=== PATIENT | female | born 1955 | race Caucasian/White ===

== ENCOUNTER 2019-08-21 06:57 | Day surgery (SDC) | payer MEDICARE, OTHER ==
[~2019-08-21 06:57] MED LIST: Lactated Ringers 1,000 ML IV SCH; Lidocaine 1% 6 ML ONE; Lidocaine 1%/Sod Bicarbonate in NS 8.4% 1 ML Syringe IDERM PRN; Propofol 200 MG/20 ML SDV ONE; Sodium Chloride 0.9% 10 ML Syringe FLUSH PRN; fentaNYL 100 MCG/2 ML SDV ONE
--- NOTE | 2019-08-21 07:42 | PCM.PREANE ---
Preanesthetic Assessment - Procedure Proposed Procedure: screening colonoscopy - Anesthesia/Transfusion/Family Hx Anesthesia History: Prior Anesthesia Without Reaction Family History of Anesthesia Reaction: No Transfusion History: No Prior Transfusion(s) - Review of Systems General: No Symptoms Pulmonary: No Symptoms Cardiovascular: No Symptoms Gastrointestinal: No Symptoms Neurological: Numbness (legs and hands), Tingling (feet and hands), Difficulty Walking (plate and sara in left leg knee to ankle) Other: Reports: Diabetes (check this am 121 at 0734), Thyroid Problems ( hypothyroid) - Physical Assessment NPO Status Date: 08/20/19 NPO Status Time: 23:45 Vital Signs: Last Vital Signs Temp 36.2 C 08/21/19 07:10 Pulse 80 08/21/19 07:10 Resp 16 08/21/19 07:10 BP 92/48 L 08/21/19 07:10 Pulse Ox 99 08/21/19 07:10 Height: 1.6 m Weight: 74.389 kg ASA Class: 3 Mental Status: Alert & Oriented x3 Airway Class: Mallampati = 1 Dentition: Reports: [place](s), Broken Tooth/Teeth, Missing Tooth/Teeth Thyro-Mental Finger Breadths: 3 Mouth Opening Finger Breadths: 3 ROM/Head Extension: Full Lungs: Clear to Auscultation, Normal Respiratory Effort Cardiovascular: Regular Rate, Regular Rhythm - Imaging/EKG Impressions: EKG NSR rate77 - Allergies Allergies/Adverse Reactions: Allergies Allergy/AdvReac Type Severity Reaction Status Date / Time No Known Allergies Allergy Verified 08/19/19 13:09 - Blood Blood Available: No Product(s) Available: None - Anesthesia Plan Pre-Op Medication Ordered: None - Acknowledgements Anesthesia Type Planned: MAC Pt an Appropriate Candidate for the Planned Anesthesia: Yes Alternatives and Risks of Anesthesia Discussed w Pt/Guardian: Yes Pt/Guardian Understands and Agrees with Anesthesia Plan: Yes PreAnesthesia Questionnaire HEENT History: Reports: Sinusitis Cardiovascular History: Reports: High Cholesterol, Hypertension, Other (See Below) Other Cardiovascular History: pericardial effusion Respiratory History: Reports: None Gastrointestinal History: Reports: Chronic Constipation, GERD Genitourinary History: Reports: Other (See Below) Other Genitourinary History: burning with urination, renal insufficiency 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 OB/BYN History: yeast infection, ovarian cystectomy Musculoskeletal History: Reports: Arthritis, Back Pain, Chronic, Neck Pain, Chronic Other Musculoskeletal History: lumbar strain Neurological History: Reports: CVA Psychiatric History: Reports: Depression Endocrine/Metabolic History: Reports: Diabetes, Type II, Hypothyroidism, Vitamin D Deficiency Hematologic History: Reports: Anemia, B12 Deficiency, Iron Deficiency Immunologic History: Reports: None Oncologic (Cancer) History: Reports: None Dermatologic History: Reports: None - Past Surgical History HEENT Surgical History: Reports: Cataract Surgery, Eye Surgery, Tonsillectomy Cardiovascular Surgical History: Reports: None Respiratory Surgical History: Reports: None GI Surgical History: Reports: Appendectomy, Bariatric Procedure, Cholecystectomy , Other (See Below) Other GI Surgeries/Procedures: abdominoperineal resection for neuroendocrine tumor Female Surgical History: Reports: Section, Tubal Ligation Endocrine Surgical History: Reports: None Neurological Surgical History: Reports: None Musculoskeletal Surgical History: Reports: Other (See Below) Other Musculoskeletal Surgeries/Procedures:: right trigger finger release, left leg fracture with hardware Dermatological Surgical History: Reports: None - SUBSTANCE USE Smoking Status *Q: Former Smoker Tobacco Use Within Last Twelve Months: Cigarettes Second Hand Smoke Exposure: No Days Per Week of Alcohol Use: 0 Number of Drinks Per Day: 0 Total Drinks Per Week: 0 Recreational Drug Use History: No - HOME MEDS Home Medications: Home Meds Ascorbic Acid [Vitamin C] 500 mg PO BID 08/19/19 [History] Aspirin 325 mg PO DAILY 08/19/19 [History] Brimonidine [Alphagan P 0.15% Ophth Soln] 1 drop EYEBOTH BID 08/19/19 [History] Calcium Carbonate [Calcium] 600 mg PO DAILY 08/19/19 [History] Cholecalciferol (Vitamin D3) [Vitamin D3] 5,000 unit PO DAILY 08/19/19 [History] Citalopram Hydrobromide [Celexa] 40 mg PO DAILY 08/19/19 [History] Cyanocobalamin (Vitamin B-12) [Vitamin B-12] 3,000 mcg PO DAILY 08/19/19 [ History] Cyclobenzaprine [Flexeril] 5 mg PO TID PRN 08/19/19 [History] Dapagliflozin Propanediol [Farxiga] 10 mg PO DAILY 08/19/19 [History] Exenatide Microspheres [Bydureon Pen] 2 mg SQ MO 08/19/19 [History] Ferrous Sulfate [Iron] 325 mg PO DAILY 08/19/19 [History] Fluticasone Propionate [Flonase] 1 dose NASBOTH BID 08/19/19 [History] Gabapentin [Neurontin] 800 mg PO BID 08/19/19 [History] Insulin Detemir [Levemir] 18 unit SQ QPM 08/19/19 [History] Insulin Detemir [Levemir] 20 unit SQ QAM 08/19/19 [History] Levothyroxine [Synthroid] 100 mcg PO DAILY 08/19/19 [History] Lovastatin 60 mg PO DAILY 08/19/19 [History] Montelukast [Singulair] 10 mg PO DAILY 08/19/19 [History] Pantoprazole Sodium [Protonix] 40 mg PO DAILY 08/19/19 [History] Polyethylene Glycol 3350 [MiraLAX] 1 dose PO DAILY 08/19/19 [History] Sodium Bicarbonate 650 mg PO QID 08/19/19 [History] Timolol [Betimol] 1 drop EYEBOTH BID 08/19/19 [History] Zolpidem [Ambien] 10 mg PO BEDTIME 08/19/19 [History] buPROPion HCl [Bupropion Xl] 150 mg PO DAILY 08/19/19 [History] metFORMIN HCl [Metformin HCl] 1,000 mg PO BID 08/19/19 [History] traMADol [Ultram] 50 mg PO BID 08/19/19 [History] - CURRENT (IN HOUSE) MEDS Current Meds: Current Medications Lactated Ringer's (Ringers, Lactated) 1,000 mls @ 125 mls/hr IV ASDIRECTED ARABELLA Stop: 08/21/19 23:00 Lidocaine/Sodium Bicarbonate (Buffered Lidocaine 1% In Ns 8.4%) 0.25 ml IDERM ONETIME PRN PRN Reason: Prior to IV Start Stop: 08/21/19 18:00 Sodium Chloride (Saline Flush) 10 ml FLUSH ASDIRECTED PRN PRN Reason: Keep Vein Open Stop: 08/21/19 18:00 Discontinued Medications Fentanyl (Sublimaze) Confirm Administered Dose 100 mcg .ROUTE .STK-MED ONE Stop: 08/21/19 06:03 Lidocaine HCl (Xylocaine-Mpf 1%) Confirm Administered Dose 6 mls @ as directed .ROUTE .STK-MED ONE Stop: 08/21/19 06:03 Propofol (Diprivan 20 Ml) Confirm Administered Dose 200 mg .ROUTE .STK-MED ONE Stop: 08/21/19 06:03
[2019-08-21] MEDS ORDERED: Phenylephrine/Normal Saline 100 MCG/ML 10 ML Syringe ONE (08:19)
[2019-08-21] MEDS ORDERED: ePHEDrine/Normal Saline 25 MG/5 ML Syringe ONE (08:26)
[2019-08-21] MEDS ORDERED: Propofol 200 MG/20 ML SDV ONE (08:38)
--- NOTE | 2019-08-21 09:05 | PCM48HPAN ---
Post Anesthesia Note - EVALUATION WITHIN 48HRS OF ANESTHETIC Vital Signs in Normal Range: Yes Patient Participated in Evaluation: Yes Respiratory Function Stable: Yes Airway Patent: Yes Cardiovascular Function Stable: Yes Hydration Status Stable: Yes Pain Control Satisfactory: Yes Nausea and Vomiting Control Satisfactory: Yes Mental Status Recovered: Yes Vital Signs: Last Vital Signs Temp 97.2 08/21/19 0858 Pulse 72 08/21/19 0858 Resp 7 08/21/19 0858 BP 101/55 08/21/19 0858 Pulse Ox 94 08/21/19 0858
--- NOTE | 2019-08-21 09:16 | PCM.PRNOTE ---
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 Redundant colon. Fair prep. Appendiceal orifice visualized. No polyps or diverticular disease noted. No biopsies taken. Detailed Report: The patient was taken to the endoscopy suite and placed supine. Timeout was performed, monitored anesthesia care initiated. The colonoscope was inserted through the descending end colostomy. Navigation was somewhat difficult due to challenges with maintaining insufflation, and redundant colon. The cecum was reached, and appendiceal orifice was visualized. The prep was fair, there was some sticky stool material requiring washout in the proximal colon. No polyps or other mucosal lesions were noted on withdrawal of the scope, no diverticular disease noted. The patient tolerated the procedure well. Sanju Garnett MD General Surgery
== END 2019-08-21 09:46 | disposition home or self-care (01) ==
LOC: JD.SDS 06:57
PROVIDERS: ATTEND Surgery
DX: Z08 Encounter for follow-up examination after completed treatment for malignant neoplasm (principal); Q43.8 Other specified congenital malformations of intestine; E11.40 Type 2 diabetes mellitus with diabetic neuropathy, unspecified; E78.5 Hyperlipidemia, unspecified; E03.9 Hypothyroidism, unspecified; D64.9 Anemia, unspecified; K21.9 Gastro-esophageal reflux disease without esophagitis; F32.9 Major depressive disorder, single episode, unspecified; M19.90 Unspecified osteoarthritis, unspecified site; Z90.49 Acquired absence of other specified parts of digestive tract; Z93.3 Colostomy status; Z87.891 Personal history of nicotine dependence; Z79.82 Long term (current) use of aspirin; Z79.4 Long term (current) use of insulin; Z79.51 Long term (current) use of inhaled steroids; Z79.899 Other long term (current) drug therapy
CPT/HCPCS: 36415; 80048; 82962; G0105; J2001; J2370; J2704; J3010; J7050; J7120; 00812

== ENCOUNTER 2019-09-10 13:45 | Emergency (ER) | payer MEDICARE, OTHER ==
[2019-09-10] MEDS ORDERED: Acetaminophen/HYDROcodone 325-10 MG Tab PO ONE (14:10)
--- NOTE | 2019-09-10 14:13 | EDM.PDOC ---
ED HPI GENERAL MEDICAL PROBLEM - General Chief Complaint: Lower Extremity Injury/Pain Stated Complaint: L LEG PAIN Time Seen by Provider: 09/10/19 14:02 Source of Information: Reports: Patient, Family History Limitations: Reports: No Limitations - History of Present Illness INITIAL COMMENTS - FREE TEXT/NARRATIVE: Patient's unfortunate 64-year-old female who presents emergent department today with complaint of left knee pain. Patient reports that she fell same level mechanical fall 10 days ago onto her left knee she's had pain and swelling to that knee ever since. Patient reports she didn't follow-up with her PCP who did a ultrasound of her left lower extremity approximately one week ago which showed no DVT however, she continues to have pain and swelling to her knee despite taking oxycodone at home so she presented today to the emergency department for evaluation. Patient does have swelling to her left knee with dependent ecchymosis to the medial malleolus, distal neurovascular is intact Left Lower Leg Pain Score (Numeric/FACES): 7 - Related Data Allergies Allergy/AdvReac Type Severity Reaction Status Date / Time No Known Allergies Allergy Verified 09/10/19 14:02 Home Meds: Home Meds Ascorbic Acid [Vitamin C] 500 mg PO BID 08/19/19 [History] Aspirin 325 mg PO DAILY 08/19/19 [History] Brimonidine [Alphagan P 0.15% Ophth Soln] 1 drop EYEBOTH BID 08/19/19 [History] Calcium Carbonate [Calcium] 600 mg PO DAILY 08/19/19 [History] Cholecalciferol (Vitamin D3) [Vitamin D3] 5,000 unit PO DAILY 08/19/19 [History] Citalopram Hydrobromide [Celexa] 40 mg PO DAILY 08/19/19 [History] Cyanocobalamin (Vitamin B-12) [Vitamin B-12] 3,000 mcg PO DAILY 08/19/19 [ History] Dapagliflozin Propanediol [Farxiga] 10 mg PO DAILY 08/19/19 [History] Exenatide Microspheres [Bydureon Pen] 2 mg SQ MO 08/19/19 [History] Fluticasone Propionate [Flonase] 1 dose NASBOTH BID 08/19/19 [History] Gabapentin [Neurontin] 800 mg PO TID 08/19/19 [History] Insulin Detemir [Levemir] 18 unit SQ BID 08/19/19 [History] Levothyroxine [Synthroid] 100 mcg PO DAILY 08/19/19 [History] Lovastatin 40 mg PO DAILY 08/19/19 [History] Montelukast [Singulair] 10 mg PO DAILY 08/19/19 [History] Pantoprazole Sodium [Protonix] 40 mg PO DAILY 08/19/19 [History] Sodium Bicarbonate 650 mg PO QID 08/19/19 [History] Timolol [Betimol] 1 drop EYEBOTH BID 08/19/19 [History] Zolpidem [Ambien] 10 mg PO BEDTIME 08/19/19 [History] buPROPion HCl [Bupropion Xl] 150 mg PO DAILY 08/19/19 [History] metFORMIN HCl [Metformin HCl] 1,000 mg PO BID 08/19/19 [History] polyethylene glycoL 3350 [MiraLAX] 1 dose PO DAILY 08/19/19 [History] traMADol [Ultram] 50 mg PO BID 08/19/19 [History] Acetaminophen with Codeine [Tylenol with Codeine #3 Tablet] 1 each PO Q4H PRN # 12 tablet 09/10/19 [Rx] Docusate Sodium 100 mg PO BID 09/10/19 [History] Ferrous Gluconate 27 mg PO DAILY 09/10/19 [History] Past Medical History HEENT History: Reports: Sinusitis Cardiovascular History: Reports: High Cholesterol, Hypertension, Other (See Below) Other Cardiovascular History: pericardial effusion Respiratory History: Reports: None Gastrointestinal History: Reports: Chronic Constipation, GERD Genitourinary History: Reports: Other (See Below) Other Genitourinary History: burning with urination, renal insufficiency 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, ovarian cystectomy Musculoskeletal History: Reports: Arthritis, Back Pain, Chronic, Neck Pain, Chronic Other Musculoskeletal History: lumbar strain Neurological History: Reports: CVA Psychiatric History: Reports: Depression Endocrine/Metabolic History: Reports: Diabetes, Type II, Hypothyroidism, Vitamin D Deficiency Hematologic History: Reports: Anemia, B12 Deficiency, Iron Deficiency Immunologic History: Reports: None Oncologic (Cancer) History: Reports: None Dermatologic History: Reports: None - Infectious Disease History Infectious Disease History: Reports: None - Past Surgical History HEENT Surgical History: Reports: Cataract Surgery, Eye Surgery, Tonsillectomy Cardiovascular Surgical History: Reports: None Respiratory Surgical History: Reports: None GI Surgical History: Reports: Appendectomy, Bariatric Procedure, Cholecystectomy , Other (See Below) Other GI Surgeries/Procedures: abdominoperineal resection for neuroendocrine tumor Female Surgical History: Reports: Section, Tubal Ligation Endocrine Surgical History: Reports: None Neurological Surgical History: Reports: None Musculoskeletal Surgical History: Reports: Other (See Below) Other Musculoskeletal Surgeries/Procedures:: right trigger finger release, left leg fracture with hardware Dermatological Surgical History: Reports: None Social & Family History - Tobacco Use Smoking Status *Q: Never Smoker - Caffeine Use Caffeine Use: Reports: Coffee, Soda - Recreational Drug Use Recreational Drug Use: No Review of Systems - Review of Systems Review Of Systems: See Below Constitutional: Denies: Chills, Fever Musculoskeletal: Reports: Leg Pain ED EXAM, GENERAL - Physical Exam Exam: See Below Exam Limited By: No Limitations General Appearance: Alert, WD/WN, Mild Distress Throat/Mouth: Normal Inspection, Normal Lips, Normal Teeth, Normal Gums, Normal Oropharynx, Normal Voice, No Airway Compromise Head: Atraumatic, Normocephalic Neck: Normal Inspection, Supple, Non-Tender, Full Range of Motion Respiratory/Chest: No Respiratory Distress, Lungs Clear, Normal Breath Sounds, No Accessory Muscle Use, Chest Non-Tender Cardiovascular: Normal Peripheral Pulses, Regular Rate, Rhythm, No Edema, No Gallop, No JVD, No Murmur, No Rub GI/Abdominal: Normal Bowel Sounds, Soft, Non-Tender, No Organomegaly, No Distention, No Abnormal Bruit, No Mass Back Exam: Normal Inspection, Full Range of Motion, NT Extremities: Other (Patient has moderate effusion left knee with distal ecchymosis that is dependent on the medial aspect to the medial malleolus, distal neurovascular is intact patient does have mild tenderness to her medial malleolus and moderate tenderness to the anterior surface of her left knee, no popliteal tenderness or ecchymosis) Neurological: Alert Skin Exam: Warm, Dry Course - Vital Signs Last Recorded V/S: Last Vital Signs Temp 96.9 F 09/10/19 13:59 Pulse 73 09/10/19 13:59 Resp 16 09/10/19 13:59 BP 125/63 09/10/19 13:59 Pulse Ox 98 09/10/19 13:59 - Orders/Labs/Meds Orders: Active Orders 24 hr Category Date Time Status Knee Min 4V Lt [CR] Stat Exams 09/10/19 14:10 Taken Tibia Fibula Lt [CR] Stat Exams 09/10/19 14:10 Taken Meds: Medications Discontinued Medications Generic Name Dose Route Start Last Admin Trade Name Freq PRN Reason Stop Dose Admin Hydrocodone Bitart/Acetaminophen 1 tab 09/10/19 14:10 09/10/19 14:37 [place] 325-10 Mg PO 09/10/19 14:11 1 tab ONETIME ONE Administration - Re-Assessments/Exams Free Text/Narrative Re-Assessment/Exam: 09/10/19 15:09 Left knee x-ray interpreted by me NARENDRA Departure - Departure Time of Disposition: 15:10 Disposition: Home, Self-Care 01 Condition: Fair Clinical Impression: Contusion of left knee Qualifiers: Encounter type: subsequent encounter Qualified Code(s): S80.02XD - Contusion of left knee, subsequent encounter - Discharge Information *PRESCRIPTION DRUG MONITORING PROGRAM REVIEWED*: Yes (380) *COPY OF PRESCRIPTION DRUG MONITORING REPORT IN PATIENT GILLES: No Prescriptions: Acetaminophen with Codeine [Tylenol with Codeine #3 Tablet] 1 each PO Q4H PRN # 12 tablet PRN Reason: Pain Referrals: Jewell Lopez MD [Primary Care Provider] - Forms: ED Department Discharge Additional Instructions: Home, rest, ice, elevate, return as needed for worsening condition Sepsis Event Note - Evaluation Sepsis Screening Result: No Definite Risk - Focused Exam Vital Signs: Vital Signs Temp Pulse Resp BP Pulse Ox 09/10/19 13:59 96.9 F 73 16 125/63 98 Date Exam was Performed: 09/10/19 Time Exam was Performed: 15:09 - My Orders Last 24 Hours: My Active Orders 09/10/19 14:10 Knee Min 4V Lt [CR] Stat Tibia Fibula Lt [CR] Stat - Assessment/Plan Last 24 Hours: My Active Orders 09/10/19 14:10 Knee Min 4V Lt [CR] Stat Tibia Fibula Lt [CR] Stat
--- NOTE | 2019-09-10 15:33 | CR ---
Addendum: Impression states with #1 that there are "proximal and distal tibial and fibular diaphyseal fractures". This is not completely correct and is corrected as follows: 1. Proximal and distal tibia and fibular diaphyseal fractures which are healed and old. --- Addendum1 above dictated on [09/10/2019 15:43] by [Darlene Maynard, Eddie Guerra] --- --- Addendum1 above signed on [09/10/2019 15:45] by [Darlene Maynard Hilton J.] --- --- Original report below dictated on [09/10/2019 15:11] by [Darlene Maynard, Eddie Guerra] --- --- Original report below signed on [09/10/2019 15:31] by [Darlene Maynard, Eddie Guerra] --- Left tibia and fibula: Two views of the left tibia and fibula were obtained. Comparison: Prior left tibia and fibula study of 09/02/19. Intramedullary sara is noted within the tibia. Plate and screws are seen within the proximal tibia. Deformity from healed fracture is noted within the proximal tibia and fibular diaphysis. Slight deformity of the more distal tibial diaphysis is seen presumably due to additional healed fracture with slight dystrophic calcification projecting off this area. Old healed distal fibular diaphyseal fracture is also noted. No acute abnormality is seen. Impression: 1. Proximal and distal tibia and fibular diaphyseal fractures. 2. Orthopedic hardware is in place. 3. Small dystrophic calcification projecting off the distal tibial fracture medially. Diagnostic code #2 This report was dictated in [place] Standard Time --- Addendum1 signed ---
--- NOTE | 2019-09-10 15:33 | CR ---
Left knee: Four views of the left knee were obtained. Comparison: No prior knee exam is available. Intramedullary sara as well as anterior plate and screws are seen within the tibia. Mild joint space narrowing is seen within the medial joint. Medial tibial osteophyte is seen. Deformity of the proximal tibial shaft and fibular shaft are seen compatible with old healed fractures. Minimal joint effusion is seen. Minimal vascular calcification is noted. Nothing acute is seen. Impression: 1. Mild medial joint space narrowing and mild medial tibial osteophyte. 2. Other findings as noted above. Diagnostic code #2 This report was dictated in [place] Standard Time
== END 2019-09-10 15:30 | disposition home or self-care (01) ==
LOC: JD.ED 13:45
DX: S80.02XA Contusion of left knee, initial encounter (principal); E78.00 Pure hypercholesterolemia, unspecified; I10 Essential (primary) hypertension; K21.9 Gastro-esophageal reflux disease without esophagitis; E11.9 Type 2 diabetes mellitus without complications; E03.9 Hypothyroidism, unspecified; F32.9 Major depressive disorder, single episode, unspecified; Z86.73 Personal history of transient ischemic attack (TIA), and cerebral infarction without residual deficits; Z79.4 Long term (current) use of insulin; Z79.82 Long term (current) use of aspirin; Z79.899 Other long term (current) drug therapy; Z79.890 Hormone replacement therapy; W18.30XA Fall on same level, unspecified, initial encounter
CPT/HCPCS: 73564; 73590; 99283; A9270

== ENCOUNTER 2022-02-21 06:53 | Day surgery (SDC) | payer MEDICARE ==
[~2022-02-21 06:53] MED LIST changes: -Lidocaine 1% 6 ML ONE; -Propofol 200 MG/20 ML SDV ONE; +Sodium Chloride 0.9% 10 ML Syringe FLUSH SCH; -fentaNYL 100 MCG/2 ML SDV ONE
[2022-02-21] MEDS ORDERED: Lidocaine 1% 6 ML ONE (07:16)
[2022-02-21] MEDS ORDERED: Propofol 200 MG/20 ML SDV ONE (07:16)
[2022-02-21] MEDS ORDERED: Ondansetron 4 MG/2 ML SDV IVPUSH PRN ×2 (07:40→08:37)
[2022-02-21] MEDS ORDERED: fentaNYL 100 MCG/2 ML SDV IVPUSH PRN (08:37)
[2022-02-21] MEDS ORDERED: HYDROmorphone 0.5 MG/0.5 ML Syringe IVPUSH PRN (08:37)
== END 2022-02-21 09:32 | disposition home or self-care (01) ==
LOC: JD.SDS 06:53
PROVIDERS: ATTEND Surgery
DX: Z12.11 Encounter for screening for malignant neoplasm of colon (principal); F32.A Depression, unspecified; E11.40 Type 2 diabetes mellitus with diabetic neuropathy, unspecified; K21.9 Gastro-esophageal reflux disease without esophagitis; E78.5 Hyperlipidemia, unspecified; I10 Essential (primary) hypertension; E03.9 Hypothyroidism, unspecified; G47.00 Insomnia, unspecified; E55.9 Vitamin D deficiency, unspecified; E66.3 Overweight; E11.649 Type 2 diabetes mellitus with hypoglycemia without coma; Z79.899 Other long term (current) drug therapy; Z79.890 Hormone replacement therapy; Z79.84 Long term (current) use of oral hypoglycemic drugs; Z85.040 Personal history of malignant carcinoid tumor of rectum; Z90.49 Acquired absence of other specified parts of digestive tract; Z86.16 Personal history of COVID-19; Z98.890 Other specified postprocedural states; Z87.891 Personal history of nicotine dependence
CPT/HCPCS: G0105; J2405; J2704; J7120

== ENCOUNTER 2023-09-13 12:23 | Emergency (ER) | payer MEDICARE ==
[2023-09-13] MEDS ORDERED: Lidocaine 1% 10 ML MDV INJECT ONE (12:58)
[2023-09-13 13:43] LABS: BASOPHILS ABSOLUTE AUTO 0.1 K/mm3 (0.0-0.2); BASOPHILS PERCENT AUTO 1.3 % (0.0-1.0); EOSINOPHILS ABSOLUTE AUTO 0.2 K/mm3 (0.0-0.4); EOSINOPHILS PERCENT AUTO 3.3 % (0.0-6.0); HEMATOCRIT 44.6 % (37.0-47.0); IMMATURE GRAN ABSOLUTE AUTO 0.02 K/mm3 (0.00-0.05); IMMATURE GRAN PERCENT AUTO 0.4 % (0.0-0.4); LYMPHOCYTES PERCENT AUTO 19.2 % (24.0-44.0); MEAN CORPUSCULAR HEMOGLOBIN 29.6 pg (28.0-32.0); MEAN CORPUSCULAR HGB CONC 32.7 g/dl (32.0-36.0); MONOCYTES ABSOLUTE AUTO 0.4 K/mm3 (0.0-0.8); MONOCYTES PERCENT AUTO 8.1 % (0.0-8.0); NEUTROPHILS ABSOLUTE AUTO 3.5 K/mm3 (1.8-7.7); NEUTROPHILS PERCENT AUTO 67.7 % (41.0-71.0); PLATELET COUNT,PLT 208 K/mm3 (150-400); RED BLOOD CELL COUNT 4.93 M/mm3 (4.10-5.30); WHITE BLOOD CELL COUNT,WBC 5.21 K/mm3 (3.9-11.3)
[2023-09-13 13:49] LABS: HEMOGLOBIN 14.6 gm/dl (12.0-16.0); MEAN CORPUSCULAR VOLUME 90.5 fl (83.0-99.0)
[2023-09-13 14:00] LABS: APPEARANCE,URINE CLEAR (Clear); BILIRUBIN,URINE NEGATIVE (Negative); COLOR,URINE YELLOW (Yellow); GLUCOSE,URINE 2+ (Negative); KETONES,URINE NEGATIVE (Negative); LEUKOCYTE ESTERASE,URINE NEGATIVE (Negative); NITRITE,URINE NEGATIVE (Negative); OCCULT BLOOD,URINE NEGATIVE (Negative); PROTEIN,URINE NEGATIVE (Negative); UROBILINOGEN,URINE 0.2 (0.2-1.0)
[2023-09-13 14:08] LABS: PROTHROMBIN TIME 9.8 SECONDS (9.7-12.0)
[2023-09-13 14:10] LABS: BARBITURATE SCREEN,URINE NEGATIVE (CUTOFF=200); BENZODIAZEPINES SCREEN,URINE NEGATIVE (CUTOFF=150); BUPRENORPHINE SCREEN,URINE NEGATIVE (CUTOFF=10); METHADONE SCREEN, URINE NEGATIVE (CUTOFF=200); METHAMPHETAMINES SCREEN, URINE NEGATIVE (CUTOFF=500); OXYCODONE SCREEN,URINE NEGATIVE (CUT0FF=100); THC SCREEN,URINE 20 NG/ML NEGATIVE (CUTOFF=50)
[2023-09-13 14:10] LABS: INR < 0.93
[2023-09-13 14:12] LABS: AMPHETAMINES SCREEN, URINE NEGATIVE (CUTOFF=500)
[2023-09-13 14:12] LABS: A/G RATIO 1.2 (1-2); ALBUMIN 3.6 g/dl (3.4-5.0); ANION GAP 15.1 (5-15); BILIRUBIN TOTAL 0.3 mg/dL (0.2-1.0); BUN/CREATININE RATIO 21.7 (14-18); CALCIUM 9.4 mg/dL (8.5-10.1); CREATININE 1.2 mg/dL (0.55-1.02); EST CRCL DRUG DOSING (CG) 37.12 mL/min; POTASSIUM,K 5.1 mEq/L (3.5-5.1); PROTEIN TOTAL,TP 6.6 g/dl (6.4-8.2)
[2023-09-13 14:13] LABS: BACTERIA,URINE FEW /hpf (FEW); EPITHELIAL CELLS,URINE 0-5 /hpf (0-5); RBC,URINE 0-5 /hpf (0-5); WBC,URINE 0-5 /hpf (0-5)
[2023-09-13 14:14] LABS: MUCUS,URINE FEW /hpf (FEW)
[2023-09-13] MEDS ORDERED: Lactated Ringers 1,000 ML IV SCH (15:00)
[2023-09-13] MEDS: Diphtheria,Pertussis(Acell),Tetanus Vaccine 0.5 ML Syringe IM ONE ×2 (21:24→21:29)
== END 2023-09-14 08:51 | disposition home or self-care (01) ==
LOC: JD.ED 12:23
DX: S01.01XA Laceration without foreign body of scalp, initial encounter (principal); I10 Essential (primary) hypertension; E78.00 Pure hypercholesterolemia, unspecified; K21.9 Gastro-esophageal reflux disease without esophagitis; E11.9 Type 2 diabetes mellitus without complications; E03.9 Hypothyroidism, unspecified; Z86.73 Personal history of transient ischemic attack (TIA), and cerebral infarction without residual deficits; Z90.49 Acquired absence of other specified parts of digestive tract; Z79.82 Long term (current) use of aspirin; Z79.4 Long term (current) use of insulin; Z79.899 Other long term (current) drug therapy; W01.198A Fall on same level from slipping, tripping and stumbling with subsequent striking against other object, initial encounter
CPT/HCPCS: 12001; 36415; 70450; 70450-26; 72125; 72125-26; 80053; 80306; 80307; 81001; 85025; 85610; 90715; 99283; 99284; J3490